=== PATIENT | male | born 1985 | race Caucasian/White ===

== ENCOUNTER 2016-09-24 14:13 | Emergency (ER) | payer MEDICAID ==
[~2016-09-24] VITALS: Ht 190.5 cm; Wt 95.0 kg
[2016-09-24] MEDS ORDERED: LEVE250T PO (14:49)
[2016-09-24] MEDS ORDERED: LAMO25TA PO (14:49)
[2016-09-24] MEDS ORDERED: LEVE500T53 PO (14:53)
[2016-09-24] MEDS ORDERED: LAMO25 PO (14:53)
[2016-09-24 16:31] VITALS: BP 125/84
== END 2016-09-24 16:40 | disposition home or self-care (01) ==
LOC: EMS 14:15
DX: L73.1 Pseudofolliculitis barbae (principal); L08.9 Local infection of the skin and subcutaneous tissue, unspecified; R03.0 Elevated blood-pressure reading, without diagnosis of hypertension; Z88.8 Allergy status to other drugs, medicaments and biological substances
CPT/HCPCS: 10060; 99283

== ENCOUNTER 2016-12-24 10:43 | Emergency (ER) | payer MEDICAID ==
[~2016-12-24] VITALS: Ht 190.5 cm; Wt 90.5 kg
[~2016-12-24 10:43] MED LIST: LAMO25 PO; LEVE500T53 PO
[2016-12-24] MEDS ORDERED: CYCL10 PO (10:58)
[2016-12-24 13:03] LABS: BASOPHILS # (AUTO) 0.01 K/uL (0.00-0.20); BASOPHILS % (AUTO) 0.2 % (0.0-2.0); EOSINOPHILS # (AUTO) 0.08 K/uL (0.00-0.70); EOSINOPHILS % (AUTO) 1.14 % (1.0-6.0); HEMATOCRIT 42.5 % (41-53); HEMOGLOBIN 14.8 g/dL (13.5-17.5); LYMPHOCYTES # (AUTO) 1.9 K/uL (1.0-4.8); LYMPHOCYTES % (AUTO) 25.8 % (22.0-44.0); MEAN CORPUSCULAR HEMOGLOBIN 33.3 pg (26.0-34.0); MEAN CORPUSCULAR HGB CONC 34.8 G/dL (31.0-37.0); MEAN CORPUSCULAR VOLUME 96 fL (80-100); MONOCYTES # (AUTO) 0.4 K/uL (0.1-1.0); MONOCYTES % (AUTO) 5.9 % (2.0-9.0); NEUTROPHILS # (AUTO) 4.9 K/uL (1.8-7.7); PLATELET COUNT (AUTO) 215 K/uL (150-450); RED BLOOD CELL COUNT(AUTO) 4.44 MIL/uL (4.50-5.90); WHITE BLOOD COUNT (AUTO) 7.3 K/uL (4.5-11.0)
[2016-12-24 13:12] LABS: ANION GAP 8 mmol/L (8-16); CALCIUM, TOTAL 9.3 mg/dL (8.8-10.5); CARBON DIOXIDE 28 mmol/L (22-29); CHLORIDE 105 mmol/L (98-107); CREATININE 1.05 mg/dL (0.60-1.30); GLOMERULAR FILTR. RATE CALC > 60 mL/min (>60); POTASSIUM 3.8 mmol/L (3.5-5.1); SODIUM SERUM 141 mmol/L (136-145); UREA NITROGEN, BLOOD 17 mg/dL (7-18)
[2016-12-24 13:37] LABS: ALANINE AMINOTRANSFERASE 23 U/L (12-78); ALBUMIN 4.3 g/dL (3.4-5.0); ASPARTATE AMINOTRANSFERASE 18 U/L (15-37); BILIRUBIN,TOTAL 0.6 mg/dL (0.1-1.0); CREATINE KINASE MB 2.4 ng/mL (0-5); CREATINE KINASE, TOTAL 238 U/L (39-308); TOTAL PROTEIN, SERUM 8.3 g/dL (6.4-8.2)
[2016-12-24 14:31] VITALS: BP 141/86
== END 2016-12-24 14:33 | disposition home or self-care (01) ==
LOC: EMS 10:47
DX: R07.89 Other chest pain (principal); J45.909 Unspecified asthma, uncomplicated; Z88.8 Allergy status to other drugs, medicaments and biological substances
CPT/HCPCS: 71020; 93005; 99285

== ENCOUNTER 2017-01-22 14:05 | Emergency (ER) | payer MEDICAID ==
[~2017-01-22] VITALS: Ht 190.5 cm; Wt 95.9 kg
[~2017-01-22 14:05] MED LIST changes: +CYCL10 PO
[2017-01-22 16:25] VITALS: BP 124/80
[2017-01-22] MEDS ORDERED: GuaiFENesin/D-METHORPHAN [SUGAR-FREE] 200-20MG/10 ML SYRUP UDCUP PO ONE (16:30)
[2017-01-22] MEDS ORDERED: IPRATROPIUM BROMIDE 0.5 MG/2.5 ML NEB SOLUTION NEB ONE (16:30)
[2017-01-22] MEDS ORDERED: ALBUTEROL SULFATE 2.5 MG/0.5 ML NEB SOLUTION NEB ONE (16:30)
== END 2017-01-22 17:21 | disposition home or self-care (01) ==
LOC: EMS 14:07
DX: J45.909 Unspecified asthma, uncomplicated (principal); Z88.8 Allergy status to other drugs, medicaments and biological substances
CPT/HCPCS: 94640; 99283; J7613